=== PATIENT | female | born 1935 | race Caucasian/White ===

== ENCOUNTER 2016-08-14 08:32 | Day surgery (SDC) | payer MEDICARE, OTHER ==
--- NOTE | ~2016-08-14 | EGD ---
EGD REPORT [facility] [address] [id number] NAME: NELY HOWELL : 39 STATUS : REG [facility] PAT#: [id number] AGE: 80 ADM/REG DATE : 08/14/16 MR#: [id number] REPORT SERV DATE: 08/14/16 DICTATED BY: MICHAEL COLLINS DATE: 08/14/16 REPORT STATUS : Draft TRANSCRIBED BY: [employer] DATE: 08/14/16 [facility] Patient Name: Nely Howell Date of : 1935 Attending MD: MICHAEL COLLINS MD Procedure Date No Time: 08/14/2016 Procedure: Colonoscopy Indications: Screening for colorectal malignant neoplasm Referring MD: SAURABH CHALRES Medicines: Monitored Anesthesia Care Complications: No immediate complications. Procedure: Pre-Anesthesia Assessment: - ASA Grade Assessment: III - A patient with severe systemic disease. After I obtained informed consent, the scope was passed under direct vision. Throughout the procedure, the patient's blood pressure, pulse, and oxygen saturations were monitored continuously. The PCF [id number] was introduced through the anus and advanced to the terminal ileum, with identification of the appendiceal orifice and IC valve. The colonoscopy was performed without difficulty. The patient tolerated the procedure well. The quality of the bowel preparation was good. Findings: The terminal ileum appeared normal. Multiple diverticula were found in the entire colon. Hemorrhoids were found during retroflexion and were mild. Impression: - The examined portion of the ileum was normal. - Diverticulosis in the entire examined colon. - Hemorrhoids. Recommendation: - Patient has a contact number available for emergencies. The signs and symptoms of potential delayed complications were discussed with the patient. Return to normal activities tomorrow. Written discharge instructions were provided to the patient. - Regular diet. - Continue present medications. - Due to patient age no further polyp surveillance colonoscopies planned. - Repeat colonoscopy is not recommended for screening purposes. EGD REPORT [facility] [address] [id number] NAME: NELY HOWELL : [birth year] STATUS : REG [facility] PAT#: [id number] AGE: 80 ADM/REG DATE : 08/14/16 MR#: [id number] REPORT SERV DATE: 08/14/16 DICTATED BY: MICHAEL COLLINS DATE: 08/14/16 REPORT STATUS : Draft TRANSCRIBED BY: [employer] DATE: 08/14/16 Procedure Code(s): --- Professional --- 69667, Colonoscopy, flexible, proximal to splenic flexure; diagnostic, with or without collection of specimen(s) by brushing or washing, with or without colon decompression (separate procedure) Diagnosis Code(s): --- Professional --- K64.9, Unspecified hemorrhoids K57.30, Diverticulosis of large intestine without perforation or abscess without bleeding Z12.11, Encounter for screening for malignant neoplasm of colon CPT copyright 2013 [employer]. All rights reserved. The codes documented in this report are preliminary and upon home security professional review may be revised to meet current compliance requirements. MICHAEL COLLINS MD 08/14/2016 10:15 AM This report has been signed electronically. Number of Addenda: 0 Note Initiated On: 08/14/2016 9:55 AM Scope Withdrawal Time 0 hours 6 minutes 27 seconds [address] [id number]
[~2016-08-14 08:32] MED LIST: NORV10 PO; PLAVIX PO; SYN125 PO; ZOCOR10 PO
== END 2016-08-14 23:59 | disposition home or self-care (01) ==
LOC: DMU 08:32
PROVIDERS: Internal Medicine Gastroenterology
PROC: 0DJD8ZZ Inspection of Lower Intestinal Tract, Via Natural or Artificial Opening Endoscopic (ICD-10-PCS; principal; 2016-08-14 10:00)
DX: Z12.11 Encounter for screening for malignant neoplasm of colon (principal); K64.9 Unspecified hemorrhoids; K57.30 Diverticulosis of large intestine without perforation or abscess without bleeding; I10 Essential (primary) hypertension; E78.00 Pure hypercholesterolemia, unspecified; Z88.0 Allergy status to penicillin